=== PATIENT | female | born 2000 | race Two or more races ===

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

== ENCOUNTER 2021-01-26 13:25 | Emergency (ER) | payer MEDICAID ==
[~2021-01-26] VITALS: Ht 160 cm; Wt 77.3 kg
[~2021-01-26 13:25] MED LIST changes: +ACET-812 PO; +CYCL-1 PO; +LIDO700A32 TOP
[2021-01-26 13:31] VITALS: BP 139/94
== END 2021-01-26 14:46 | disposition home or self-care (01) ==
LOC: ER 13:25
DX: R53.83 Other fatigue (principal); Z20.822 Contact with and (suspected) exposure to COVID-19
CPT/HCPCS: 87635; 99283; C9803

== ENCOUNTER 2021-02-22 21:11 | Emergency (ER) | payer MEDICAID ==
[~2021-02-22] VITALS: Ht 160 cm; Wt 77.3 kg
[2021-02-22 22:40] LABS: BASOPHILS % (AUTO) 0.5 % (0-1); EOSINOPHILS % (AUTO) 0.1 % (0-6); HEMATOCRIT 42.5 % (35.0-45.0); LYMPHOCYTES # (AUTO) 1.4 X10'3 (1.1-4.8); LYMPHOCYTES % (AUTO) 33.4 % (21-51); MEAN CORPUSCULAR HEMOGLOBIN 27.1 PG (27.0-31.0); MEAN CORPUSCULAR HGB CONC 33.1 g/dL (33.0-36.5); MEAN PLATELET VOLUME 9.7 FL (7.4-10.4); MONOCYTES # (AUTO) 0.6 X10'3 (0-0.9); NEUTROPHILS # (AUTO) 2.1 X10'3 (1.8-7.7); PLATELET COUNT 292 X10'3 (140-440); RED BLOOD COUNT 5.18 X10'6 (4.20-5.60); WHITE BLOOD COUNT 4.1 X10'3 (4.5-11.0)
[2021-02-22 23:11] LABS: ALANINE AMINOTRANSFERASE 13 U/L (12-78); ALBUMIN 3.8 G/DL (3.4-5.0); ALKALINE PHOSPHATASE 83 IU/L (20-180); ANION GAP 13 (8-16); ASPARTATE AMINO TRANSFERASE 27 U/L (10-37); BILIRUBIN,TOTAL 0.2 MG/DL (0.1-1.0); BLOOD UREA NITROGEN 8 MG/DL (7-18); BUN/CREATININE RATIO 11.6 (6.6-38.0); CALCIUM 9.3 MG/DL (8.5-10.1); CHLORIDE 105 MMOL/L (99-107); CREATININE 0.69 MG/DL (0.40-0.90); GLUCOSE 104 MG/DL (70-104); POTASSIUM 3.3 MMOL/L (3.5-5.1); SODIUM 140 MMOL/L (135-145); TOTAL PROTEIN 7.8 G/DL (6.4-8.2); eGFR > 90 ML/MIN
[2021-02-22] MEDS ORDERED: ondansetron 4mg/5ml UD cup PO ONE (23:30)
[2021-02-22] MEDS ORDERED: acetaminophen 325mg tablet PO ONE (23:30)
[2021-02-22] MEDS ORDERED: ketorolac trometh. 30mg/ml inj. IM ONE (23:30)
[2021-02-22] MEDS ORDERED: ondansetron 4mg rapidly disintigrating tab PO ONE (23:35)
[2021-02-23 01:02] VITALS: BP 137/84
== END 2021-02-23 01:03 | disposition home or self-care (01) ==
LOC: ER 21:11
DX: B34.9 Viral infection, unspecified (principal); F41.0 Panic disorder [episodic paroxysmal anxiety]; R51.9 Headache, unspecified; R50.9 Fever, unspecified; R11.0 Nausea; R53.83 Other fatigue; Z79.899 Other long term (current) drug therapy
CPT/HCPCS: 36415; 71045; 80053; 83880; 84484; 85025; 93005; 96372; 99285; J1885

== ENCOUNTER 2024-04-28 22:46 | Emergency (ER) | payer MEDICAID, OTHER ==
[~2024-04-28] VITALS: Ht 160 cm; Wt 103.1 kg
[~2024-04-28 22:46] MED LIST changes: +ONDA-243 PO; -ONDA4TAB12 PO
[2024-04-28 23:53] LABS: BASOPHILS % (AUTO) 0.3 % (0-1); EOSINOPHILS % (AUTO) 0.5 % (0-6); HEMATOCRIT 39.3 % (35.0-45.0); LYMPHOCYTES # (AUTO) 2.5 X10'3 (1.1-4.8); LYMPHOCYTES % (AUTO) 28.7 % (21-51); MEAN CORPUSCULAR HEMOGLOBIN 26.5 PG (27.0-31.0); MEAN CORPUSCULAR HGB CONC 33.1 g/dL (33.0-36.5); MEAN CORPUSCULAR VOLUME 80.1 FL (78-98); MEAN PLATELET VOLUME 8.6 FL (7.4-10.4); MONOCYTES # (AUTO) 0.7 X10'3 (0-0.9); MONOCYTES % (AUTO) 8.6 % (2-12); NEUTROPHILS # (AUTO) 5.3 X10'3 (1.8-7.7); NEUTROPHILS % (AUTO) 61.9 % (42-75); PLATELET COUNT 235 X10'3 (140-440); RED CELL DISTRIBUTION WIDTH 14.2 % (11.5-14.5); WHITE BLOOD COUNT 8.6 X10'3 (4.5-11.0)
[2024-04-29 00:04] LABS: HCG SERUM QL NEGATIVE
[2024-04-29 00:07] LABS: APTT 25 SECONDS (22-32); INR 1.1 INR; PROTHROMBIN TIME 11.3 SECONDS (9.0-12.0)
[2024-04-29 00:10] LABS: ALANINE AMINOTRANSFERASE 48 U/L (12-78); ALBUMIN 3.1 G/DL (3.4-5.0); ALBUMIN/GLOBULIN RATIO 0.7 (1.1-1.5); ALKALINE PHOSPHATASE 88 IU/L (46-116); ANION GAP 6 (8-16); ASPARTATE AMINO TRANSFERASE 46 U/L (10-37); BILIRUBIN,TOTAL 0.4 MG/DL (0.1-1.0); BLOOD UREA NITROGEN 8 MG/DL (7-18); BUN/CREATININE RATIO 9.8 (10.0-20.0); CALCIUM 8.8 MG/DL (8.5-10.1); CHLORIDE 102 MMOL/L (99-107); CREATININE 0.82 MG/DL (0.40-0.90); GLUCOSE 104 MG/DL (70-104); POTASSIUM 3.1 MMOL/L (3.5-5.1); SODIUM 137 MMOL/L (135-145); TOTAL CARBON DIOXIDE 28.9 MMOL/L (24-32); TOTAL PROTEIN 7.7 G/DL (6.4-8.2); eCRCL 89 ML/MIN; eGFR 87 ML/MIN
[2024-04-29 00:18] LABS: CREATINE KINASE 34 U/L (26-192); FREE T4 (FREE THYROXINE) 1.02 NG/DL (0.73-1.40); PRO BRAIN NATRIURETIC PEPTIDE 34 PG/ML (0-125)
[2024-04-29] MEDS: potassium Cl 20 mEq SR tablet PO STA ×2 (02:23→04:04)
[2024-04-29] MEDS: acetaminophen 325mg tablet PO ONE (02:24)
[2024-04-29] MEDS ORDERED: ketorolac trometh. 30mg/ml inj. IV ONE (02:25)
[2024-04-29] MEDS: proCHLORperazine 10 MG/2 ml inj IV ONE (02:29)
[2024-04-29] MEDS: ondansetron/PF 4mg/2ml inj IV ONE (02:30)
[2024-04-29] MEDS: levetiracetam inj 1,000 MG in normal saline 100ml IV soln 100 ML IV ONE (02:30)
[2024-04-29] MEDS: normal saline 1000ml 1,000 ML IV ONE (02:37)
[2024-04-29] MEDS: ketorolac tromethamine 15mg/ml inj. IV ONE (02:38)
[2024-04-29] MEDS ORDERED: ACET-1025 PO (03:07)
[2024-04-29 03:17] LABS: BILIRUBIN,URINE SMALL (Neg); CLARITY,URINE CLOUDY (Clear); COLOR,URINE YELLOW (Yellow); GLUCOSE, URINE NEGATIVE (Neg); KETONES,URINE TRACE mg/dl (Neg); LEUKOCYTE ESTERASE ,URINE NEGATIVE (Neg); NITRITES, URINE POSITIVE (Neg); OCCULT BLOOD,URINE TRACE-INTACT (Neg); PH,URINE 6.5 (4.8-8.0); PROTEIN,URINE TRACE mg/dl (Neg)
[2024-04-29 03:37] LABS: UA COLLECTION TYPE CLN CATCH MIDSTREAM
[2024-04-29 03:47] LABS: BACTERIA,URINE 4+ /HPF (Neg); WBC,URINE 0-4 /HPF (0-4)
[2024-04-29 03:48] LABS: MUCUS STRANDS FEW /LPF (Neg); SQUAMOUS EPITHELIAL CELL,UR FEW /LPF (FEW); TRANSITIONAL EPI CELLS,URINE FEW /HPF
[2024-04-29 03:54] LABS: URINE AMPHETAMINE SCREEN NEGATIVE (Neg); URINE BARBITUATE SCREEN NEGATIVE (Neg); URINE BENZODIAZEPINES SCREEN NEGATIVE (Neg); URINE CANNABINOID SCREEN POSITIVE (Neg); URINE COCAINE SCREEN NEGATIVE (Neg); URINE METHADONE SCREEN NEGATIVE (Neg); URINE OPIATE SCREEN NEGATIVE (Neg); URINE PHENCYCLIDINE SCREEN NEGATIVE (Neg)
[2024-04-29 05:18] VITALS: BP 128/68; PULSE 78; RESP 15; TEMP 98.1; O2SAT 98
== END 2024-04-29 05:20 | disposition home or self-care (01) ==
LOC: ER 22:46
DX: R56.9 Unspecified convulsions (principal); R11.0 Nausea; R51.9 Headache, unspecified; R07.9 Chest pain, unspecified; Z79.899 Other long term (current) drug therapy; Z79.1 Long term (current) use of non-steroidal anti-inflammatories (NSAID)
CPT/HCPCS: 36415; 70450; 71045; 80053; 80305; 81001; 82550; 83605; 83880; 84439; 84484; 84703; 85025; 85610; 85730; 87077; 87088; 87186; 93005; 96365; 96375; 99285; J0780; J1885; J1953; J2405; J7030